=== PATIENT | male | born 1990 | race Caucasian/White ===

== ENCOUNTER 2017-12-25 20:24 | Emergency (ER) | payer OTHER ==
[2017-12-25 21:47] LABS: BASOPHILS % (AUTO) 0.1 % (0.0-5.0); EOSINOPHILS % (AUTO) 0.1 % (0.0-8.0); HEMATOCRIT 41.5 % (42-54); LYMPHOCYTES % (AUTO) 5.2 % (21.0-51.0); MEAN CORPUSCULAR HEMOGLOBIN 29.8 pg (27.0-33.0); MEAN CORPUSCULAR HGB CONC 34.3 g/dL (32.0-36.0); MEAN CORPUSCULAR VOLUME 86.8 fL (79-99); MONOCYTES % (AUTO) 9.6 % (3.0-13.0); PLATELET COUNT (AUTO) 295 K/uL (130-400); RED BLOOD CELL COUNT(AUTO) 4.78 MIL/uL (4.50-6.20); RED CELL DISTRIBUTION WIDTH 13.5 % (11.0-15.5); WHITE BLOOD COUNT (AUTO) 18.2 K/uL (4.8-10.8)
[2017-12-25 21:59] LABS: POTASSIUM 3.5 mmol/L (3.5-5.1)
[2017-12-25 22:04] LABS: ALBUMIN 4.6 g/dL (3.5-5.0); BILIRUBIN,TOTAL 0.4 mg/dL (0.2-1.0); TOTAL PROTEIN, SERUM 7.5 g/dL (6.0-8.3)
[2017-12-25 22:44] LABS: AMPHET/METH SCREEN,URINE NEGATIVE (NEGATIVE); BARBITURATE SCREEN, URINE NEGATIVE (NEGATIVE); BENZODIAZEPINES SCREEN,URINE NEGATIVE (NEGATIVE); CANNABINOID SCREEN,URINE POSITIVE (NEGATIVE); COCAINE SCREEN,URINE NEGATIVE (NEGATIVE); OPIATE SCREEN,URINE NEGATIVE (NEGATIVE); PHENCYCLIDINE SCREEN,URINE NEGATIVE (NEGATIVE)
[2017-12-26] MEDS ORDERED: ONDANSETRON HCL 4 MG/2 ML VIAL ONE (01:01)
[2017-12-26] MEDS ORDERED: KETOROLAC TROMETHAMINE 15MG/ML ONE (01:18)
[2017-12-26] MEDS ORDERED: SODIUM CHLORIDE 0.9% 100 ML IV ONE (01:19)
[2017-12-26] MEDS ORDERED: METOCLOPRAMIDE 10 MG/2 ML VIAL ONE (02:30)
[2017-12-26] MEDS ORDERED: ONDANSETRON HCL MDV 20ML 2 MG/ML VIAL ONE ×2 (02:31→02:33)
[2017-12-26] MEDS ORDERED: DiphenhydrAMINE HCL 50 MG/ML VIAL ONE (02:32)
[2017-12-26] MEDS ORDERED: MORPHINE SULFATE 2 MG/ML 1ML SYG ONE (02:32)
[2017-12-26] MEDS ORDERED: DIVALPROEX SODIUM 250 MG TABLET.DR PO ONE (02:44)
== END 2017-12-26 03:40 | disposition short-term general hospital (02) ==
LOC: EDH 20:24
DX: G40.802 Other epilepsy, not intractable, without status epilepticus (principal); Z87.891 Personal history of nicotine dependence
CPT/HCPCS: 36415; 70450; 80053; 80185; 80305; 85025; 96365; 96375; 96376; 99285; J1200; J1885; J2405; J2765